=== PATIENT | female | born 1930 | race Caucasian/White ===

== ENCOUNTER 2020-09-18 10:32 | Inpatient (IN) | payer MEDICARE, BC ==
[~2020-09-18] VITALS: Ht 149.9 cm; Wt 47.6 kg
[2020-09-18 11:06] LABS: BASOPHILS ABSOLUTE AUTO 0.05 K/mm3 (0.00-0.23); BASOPHILS PERCENT AUTO 1 % (0-2); EOSINOPHILS ABSOLUTE AUTO 0.09 K/mm3 (0.00-0.68); EOSINOPHILS PERCENT AUTO 1 % (0-6); Hematocrit 31.2 % (33.0-51.0); IMMATURE GRAN ABSOLUTE AUTO 0.02 K/mm3 (0.00-0.10); IMMATURE GRAN PERCENT AUTO 0 % (0-1); LYMPHOCYTES ABSOLUTE AUTO 1.14 K/mm3 (0.84-5.20); LYMPHOCYTES PERCENT AUTO 15 % (21-46); MONOCYTES ABSOLUTE AUTO 0.83 K/mm3 (0.16-1.47); MONOCYTES PERCENT AUTO 11 % (4-13); Mean Corpuscular HGB 32.8 pg (26.0-34.0); Mean Corpuscular HGB Conc 32.1 g/dL (31.5-36.5); Mean Corpuscular Volume 102 fL (80-100); Mean Platelet Volume 10.9 fL (9.1-12.4); NEUTROPHILS ABSOLUTE AUTO 5.58 K/mm3 (1.96-9.15); NEUTROPHILS PERCENT AUTO 72 % (41-73); Platelet Count 184 K/mm3 (150-400); RDW Coefficient Variation 13.1 % (11.7-14.2); RDW Standard Deviation 48.5 fL (35.1-46.3); Red Blood Cell Count 3.05 M/mm3 (3.80-5.20); White Blood Cell Count 7.71 K/mm3 (4.00-11.30)
[2020-09-18 11:35] LABS: Alanine Aminotransfer (ALT/SGP 26 U/L (12-78); Albumin, Blood 3.6 g/dL (3.4-5.0); Albumin/Globulin Ratio 1.2 (0.8-1.8); Alk Phos 79 U/L (50-136); Anion Gap 9 mmol/L (6-16); Aspartate Aminotrans (AST/SGOT 23 U/L (12-37); Bilirubin, Total 0.6 mg/dL (0.1-1.0); Blood Urea Nitrogen 17 mg/dL (8-24); Bun/Creatinine Ratio 18.3 (12.0-20.0); CO2, Blood 21 mmol/L (21-32); Calcium, Blood 8.7 mg/dL (8.5-10.1); Chloride, Blood 111 mmol/L (98-108); Creatinine, Blood 0.93 mg/dL (0.40-1.00); Glomerular Filtration Rate >60 (60-); Glucose, Blood 134 mg/dL (70-99); Potassium, Blood 3.6 mmol/L (3.5-5.5); Sodium, Blood 141 mmol/L (136-145); Total Protein, Blood 6.6 g/dL (6.4-8.2); Troponin I <0.015 ng/mL (0.000-0.040)
[2020-09-18] MEDS ORDERED: LEVSOD75 PO (12:48)
[2020-09-18] MEDS ORDERED: Aspirin EC81 MG PO (12:48)
[2020-09-18] MEDS ORDERED: CLOP75 PO (12:48)
[2020-09-18] MEDS ORDERED: ATOR80 PO (12:48)
[2020-09-18] MEDS ORDERED: OMEP20ER PO (12:49)
[2020-09-18] MEDS ORDERED: METO25ER PO (12:49)
[2020-09-18] MEDS ORDERED: LOSA25 PO (12:49)
[2020-09-18] MEDS ORDERED: ZOLP10 PO (12:49)
--- NOTE | 2020-09-18 14:15 | NUR ---
Echocardiogram completed.
--- NOTE | 2020-09-18 19:09 | NUR ---
SHIFT SUMMARY ED ADMIT THIS AFTERNOON. PATIENT SETTLED INTO ROOM. PATIENT DENIES PAIN AND NAUSEA. PATIENT VERY DYSPNEIC WITH ACTIVITY. PATIENT UP TO BR SBA. ALERT AND ORIENTED. CARDIOLOGY CONSULT CALLED TO DR. SEWELL. RECORDS REQUEST FAXED TO [facility] IN [place], [place].
--- NOTE | 2020-09-18 22:41 | NUR ---
AT APPROX 2135 RECEIVED CALL FROM NASEEM GUTIERREZ FROM RADIOLOGY DEPT, HE NOTIFIED THIS RN THAT RADIOLOGIST WOULD LIKE TO REQUEST PREVIOUS CT SCAN RESULTS DONE ON DECEMBER 2019 FOR COMPARISON BEFORE PROCEEDING WITH CT SCAN ORDERED BY DR. ALAN FOR THIS CURRENT VISIT. THIS RN, NOTIFIED DR. ALAN VIA PHONE CALL AND DR. ALAN SAID OKAY TO RADIOLOGIST'S REQUEST. NO FURTHER ORDERS NOTED. THIS RN ALSO NOTIFIED NASEEM GUTIERREZ FROM RADIOLOGY OF THE ABOVE.
[2020-09-19 05:27] LABS: BASOPHILS ABSOLUTE AUTO 0.06 K/mm3 (0.00-0.23); BASOPHILS PERCENT AUTO 1 % (0-2); EOSINOPHILS ABSOLUTE AUTO 0.17 K/mm3 (0.00-0.68); EOSINOPHILS PERCENT AUTO 3 % (0-6); Hematocrit 30.7 % (33.0-51.0); Hemoglobin 9.7 g/dL (11.5-16.0); IMMATURE GRAN ABSOLUTE AUTO 0.01 K/mm3 (0.00-0.10); IMMATURE GRAN PERCENT AUTO 0 % (0-1); LYMPHOCYTES ABSOLUTE AUTO 1.63 K/mm3 (0.84-5.20); LYMPHOCYTES PERCENT AUTO 29 % (21-46); MONOCYTES ABSOLUTE AUTO 0.84 K/mm3 (0.16-1.47); MONOCYTES PERCENT AUTO 15 % (4-13); Mean Corpuscular HGB 31.7 pg (26.0-34.0); Mean Corpuscular HGB Conc 31.6 g/dL (31.5-36.5); Mean Corpuscular Volume 100 fL (80-100); NEUTROPHILS ABSOLUTE AUTO 2.96 K/mm3 (1.96-9.15); NEUTROPHILS PERCENT AUTO 52 % (41-73); Platelet Count 188 K/mm3 (150-400); RDW Coefficient Variation 12.9 % (11.7-14.2); RDW Standard Deviation 47.2 fL (35.1-46.3); Red Blood Cell Count 3.06 M/mm3 (3.80-5.20); White Blood Cell Count 5.67 K/mm3 (4.00-11.30)
--- NOTE | 2020-09-19 05:36 | NUR ---
DEBURRER MACHINE SUMMARY PT A&OX4, ABLE TO MAKE NEEDS KNOWN PLEASANT AND COOPERATIVE TO CARE, NO C/O PAIN OR ANY DISCOMFORT. PT NPO SINCE MIDNIGHT. CONT ON 2L FLUID RESTRICTION ORDERED. NO C/O CP OR N&V. SOB W/ EXERTION NOTED WHEN PT AMBULATED TO BATHROOM. PT CONTINENT, DENIES DYSURIA. PT CALM AND RESTED IN BED T/O SHIFT, BED AT LOWEST POSITION, CALL LIGHT WITHIN REACH.
[2020-09-19 06:09] LABS: Bun/Creatinine Ratio 17.6 (12.0-20.0); Creatinine, Blood 1.02 mg/dL (0.40-1.00); Potassium, Blood 3.1 mmol/L (3.5-5.5)
--- NOTE | 2020-09-19 19:49 | NUR ---
SHIFT SUMMARY: NO ACUTE CHANGES TO REPORT THIS SHIFT. PT A&O. PT REFUSED PM DOSE OF IV LASIX; STATES SHE HASN'T SLEPT SINCE MONDAY, AND DOESN'T WANT TO BE "ON THE TOILET ALL NIGHT." AWAITING IMAGING RESULTS FROM [facility]. REPORT GIVEN TO ONCOMING RN.
--- NOTE | 2020-09-20 04:45 | NUR ---
IOS DEVELOPER SUMMARY PT A&OX4, ABLE TO MAKE NEEDS KNOWN, PLEASANT AND COOPERATIVE TO CARE. NO C/O PAIN OR ANY DISCOMFORT. NO C/O CP, SOB, OR N&V. PRN AMBIEN GIVEN REQUESTED BY PT FOR SLEEP. PT CALM AND RESTED IN BED T/O SHIFT. BED AT LOWEST POSITION. CALL LIGHT WITHIN REACH.
[2020-09-20 05:52] LABS: Bun/Creatinine Ratio 18.1 (12.0-20.0); Calcium, Blood 9.6 mg/dL (8.5-10.1); Creatinine, Blood 1.38 mg/dL (0.40-1.00); Potassium, Blood 3.8 mmol/L (3.5-5.5)
--- NOTE | 2020-09-20 18:38 | NUR ---
SHIFT SUMMARY: NO ACUTE CHANGES TO REPORT THIS SHIFT. PT A&O; CALM AND COOPERATIVE WITH CARE. PATIENT UP c SBA TO BATHROOM. TELE IN PLACE; SR IN 80s. CARDIOLOGY FOLLOWING; DIURETICS CONTINUING. AWAITING IMAGING FROM [facility]. WCTM.
--- NOTE | 2020-09-21 04:16 | NUR ---
SYSTEM DEVELOPER ASSOCIATE MANAGER SUMMARY PT A&OX4, ABLE TO MAKE NEEDS KNOWN. PLEASANT AND COOPERATIVE TO CARE. NO C/O PAIN OR ANY DISCOMFORT, DENIES CP, SOB OR N&V. PT CALM AND RESTED IN BED T/O SHIFT. BED AT LOWEST POSITION, CALL LIGHT WITHIN REACH.
[2020-09-21 08:22] LABS: Bun/Creatinine Ratio 20.7 (12.0-20.0); Calcium, Blood 9.2 mg/dL (8.5-10.1); Creatinine, Blood 1.64 mg/dL (0.40-1.00); Magnesium, Blood 1.8 mg/dL (1.6-2.4); Potassium, Blood 3.9 mmol/L (3.5-5.5)
[2020-09-21] MEDS ORDERED: LOSA50 PO (13:54)
[2020-09-21] MEDS ORDERED: SPIR25 PO (13:55)
--- NOTE | 2020-09-21 15:00 | NUR ---
DISCHARGE INSTRUCTIONS COMPLETED AND DISCUSSED WITH PT EXPRESSING UNDERSTANDING. SCRIPTS FAXED TO [facility]. DAUGHTER HERE TO PICK PT UP. TO [facility] VIA W/C.
--- NOTE | 2020-09-21 15:38 | NUR ---
Patient is in the DC process. I provide a prayer of blessing as patient and her daughter Manny prepare to leave. They voice appreciation for the prayer.
--- NOTE | 2020-09-21 16:03 | NUR ---
SUMMARY: Admit 09/18/20 Discharge: 09/21/20 home alone, daughter lives about 15 miles away, can help when needed. Although she does not want to ask. Discussed AD and follow up appointment scheduled for 09/23/[address] Arndt, to review ct scan and discuss dx of kidney ca. Malaika would like to stay home as long as she can. Her lives at [place]. She misses seeing him. Discussed Couples residence at [place], if she thinks her is able to safely live in that situation. Call Malaika for ad at home. Ambulates, Drives, shops for herself at this time. left her my number for furture care coordination needs. cp 1: Acute HFrEF (heart failure with reduced ejection fraction)
== END 2020-09-21 15:27 | disposition home or self-care (01) | DRG 291 ==
LOC: ER 10:32 → MEDS 10:33
PROVIDERS: Emergency Medicine; Internal Medicine Interventional Cardiology; ADMIT Internal Medicine
DX: I11.0 Hypertensive heart disease with heart failure (principal); I50.21 Acute systolic (congestive) heart failure; C64.9 Malignant neoplasm of unspecified kidney, except renal pelvis; C78.7 Secondary malignant neoplasm of liver and intrahepatic bile duct; E78.5 Hyperlipidemia, unspecified; I25.10 Atherosclerotic heart disease of native coronary artery without angina pectoris; E03.9 Hypothyroidism, unspecified; M48.061 Spinal stenosis, lumbar region without neurogenic claudication; Z95.5 Presence of coronary angioplasty implant and graft; Z79.82 Long term (current) use of aspirin; Z79.02 Long term (current) use of antithrombotics/antiplatelets; Z87.891 Personal history of nicotine dependence
CPT/HCPCS: 36415; 71045; 71046; 71250; 74176; 80048; 80053; 83735; 83880; 84443; 84484; 85014; 85018; 85025; 93005; 93010; 99285-25; A9270; C8929; J1650; J1940; Q9957

== ENCOUNTER 2020-12-26 13:20 | Emergency (ER) | payer MEDICARE, BC ==
[~2020-12-26] VITALS: Ht 154.9 cm; Wt 49.0 kg
[~2020-12-26 13:20] MED LIST: ATOR80 PO; Aspirin EC81 MG PO; CLOP75 PO; LEVSOD75 PO; LOSA25 PO; LOSA50 PO; METO25ER PO; OMEP20ER PO; SPIR25 PO; ZOLP10 PO
[2020-12-26 13:49] LABS: BASOPHILS ABSOLUTE AUTO 0.06 K/mm3 (0.00-0.23); BASOPHILS PERCENT AUTO 1 % (0-2); EOSINOPHILS ABSOLUTE AUTO 0.21 K/mm3 (0.00-0.68); EOSINOPHILS PERCENT AUTO 3 % (0-6); Hematocrit 31.5 % (33.0-51.0); Hemoglobin 10.3 g/dL (11.5-16.0); IMMATURE GRAN ABSOLUTE AUTO 0.02 K/mm3 (0.00-0.10); IMMATURE GRAN PERCENT AUTO 0 % (0-1); LYMPHOCYTES ABSOLUTE AUTO 1.66 K/mm3 (0.84-5.20); LYMPHOCYTES PERCENT AUTO 22 % (21-46); MONOCYTES ABSOLUTE AUTO 0.79 K/mm3 (0.16-1.47); MONOCYTES PERCENT AUTO 10 % (4-13); Mean Corpuscular HGB 32.9 pg (26.0-34.0); Mean Corpuscular HGB Conc 32.7 g/dL (31.5-36.5); Mean Corpuscular Volume 101 fL (80-100); Mean Platelet Volume 10.5 fL (9.1-12.4); NEUTROPHILS ABSOLUTE AUTO 4.98 K/mm3 (1.96-9.15); NEUTROPHILS PERCENT AUTO 65 % (41-73); NRBC ABSOLUTE 0.02 K/mm3 (0.00-0.02); NRBC Auto 0.3 /100 WBC (0.0-0.2); Platelet Count 186 K/mm3 (150-400); RDW Coefficient Variation 13.3 % (11.7-14.2); RDW Standard Deviation 49.2 fL (35.1-46.3); Red Blood Cell Count 3.13 M/mm3 (3.80-5.20); White Blood Cell Count 7.72 K/mm3 (4.00-11.30)
[2020-12-26 14:04] LABS: Albumin, Blood 3.7 g/dL (3.4-5.0); Albumin/Globulin Ratio 1.1 (0.8-1.8); Bilirubin, Total 0.3 mg/dL (0.1-1.0); Bun/Creatinine Ratio 20.2 (12.0-20.0); Creatinine, Blood 1.09 mg/dL (0.40-1.00); Globulin, Blood 3.3 g/dL (2.2-4.0); Potassium, Blood 3.9 mmol/L (3.5-5.5)
[2020-12-26 14:08] LABS: International Normalized Ratio 0.95; Prothrombin Time Results 10.3 Sec (9.7-11.5)
[2020-12-26] MEDS ORDERED: POTA10T PO (15:45)
[2020-12-26] MEDS ORDERED: FURO20 PO (15:45)
== END 2020-12-26 17:53 | disposition home or self-care (01) ==
LOC: ER 13:20
PROVIDERS: Physician Assistant
DX: I50.9 Heart failure, unspecified (principal); Z79.02 Long term (current) use of antithrombotics/antiplatelets; Z79.899 Other long term (current) drug therapy; Z87.891 Personal history of nicotine dependence
CPT/HCPCS: 36415; 70450; 70496; 70498; 71045; 80053; 83880; 85025; 85610; 93005; 93010; 94640; 96374; 99284-25; A9270; J1940; Q9967